=== PATIENT | male | born 1965 | race Caucasian/White ===

== ENCOUNTER → 2022-08-25 | Outpatient (REF) | payer OTHER ==
[2022-08-25 14:21] LABS: APPEARANCE, URINE MANUAL CLEAR (CLEAR); BILIRUBIN, URINE MANUAL NEGATIVE (NEGATIVE); BLOOD URINE MANUAL NEGATIVE (NEGATIVE); COLOR, URINE MANUAL YELLOW (YELLOW); GLUCOSE, URINE (UA) MANUAL NEGATIVE (NEGATIVE); KETONE, URINE MANUAL NEGATIVE (NEGATIVE); LEUKOCYTE ESTERASE, URINE MAN NEGATIVE (NEGATIVE); NITRITE, URINE MANUAL NEGATIVE (NEGATIVE); PROTEIN, URINE MANUAL NEGATIVE (NEGATIVE); SPECIFIC GRAVITY,URINE MANUAL 1.015 (1.002-1.035); UROBILINOGEN, URINE MANUAL NORMAL (NORMAL)
== END ==
LOC: M SMT 13:27
PROVIDERS: ATTEND Physician Assistant
DX: R39.198 Other difficulties with micturition (principal)

== ENCOUNTER → 2023-05-14 | Outpatient (CLI) | payer OTHER | LOC: M RAD 07:22 | PROVIDERS: ATTEND Otolaryngology | DX: J32.8 Other chronic sinusitis (principal) ==

== ENCOUNTER 2023-07-10 10:33 | Day surgery (SDC) | payer OTHER ==
[~2023-07-10] VITALS: Ht 188 cm; Wt 97.0 kg
[~2023-07-10 10:33] MED LIST: ALLE180T33 PO; AZEL1SPR3; BRIL1TAB PO; CARV3.12 PO; ECOT81TA5 PO; FLUTISP; NS 1,000 ML IV ONE; PANT40TA29 PO; PRED20TA PO; RAMI1CAP26 PO
[2023-07-10] MEDS ORDERED: propofoL 200 MG/20 ML VIAL As Ordered ONE ×2 (12:50→12:56)
[2023-07-10] MEDS ORDERED: LIDOCAINE 2% 100MG/5ML SDV (FOR ANES.) As Ordered ONE (12:50)
[2023-07-10] MEDS ORDERED: GLYCOPYRROLATE INJ 0.2 MG/ML 2 ML VIAL As Ordered ONE (12:56)
[2023-07-10 13:12] VITALS: TEMP 97.7
[2023-07-10 13:30] VITALS: BP 145/78; O2SAT 96
== END 2023-07-10 13:35 | disposition home or self-care (01) ==
LOC: M OPP 10:33
PROVIDERS: ATTEND Internal Medicine Gastroenterology
DX: Z12.11 Encounter for screening for malignant neoplasm of colon (principal); D12.6 Benign neoplasm of colon, unspecified; K63.5 Polyp of colon; K64.4 Residual hemorrhoidal skin tags; K64.8 Other hemorrhoids; F17.200 Nicotine dependence, unspecified, uncomplicated; I25.10 Atherosclerotic heart disease of native coronary artery without angina pectoris; Z86.73 Personal history of transient ischemic attack (TIA), and cerebral infarction without residual deficits; Z95.5 Presence of coronary angioplasty implant and graft; Z79.899 Other long term (current) drug therapy; Z88.6 Allergy status to analgesic agent; Z88.8 Allergy status to other drugs, medicaments and biological substances; Z91.030 Bee allergy status

== ENCOUNTER → 2023-10-29 | Outpatient (CLI) | payer OTHER ==
[~2023-10-29] MED LIST changes: +ISOVUE-370 76% 100ML VIAL ONE; -NS 1,000 ML IV ONE
== END ==
LOC: M PLAIMG 08:21
PROVIDERS: ATTEND Physician Assistant
DX: N28.1 Cyst of kidney, acquired (principal)

== ENCOUNTER → 2024-12-02 | Outpatient (CLI) | payer OTHER ==
[~2024-12-02] MED LIST changes: -ISOVUE-370 76% 100ML VIAL ONE; +RAMI10CA64 PO; -RAMI1CAP26 PO
== END ==
LOC: M RAD 12:52
PROVIDERS: ATTEND Nurse Practitioner Acute Care
DX: I25.10 Atherosclerotic heart disease of native coronary artery without angina pectoris (principal); I25.84 Coronary atherosclerosis due to calcified coronary lesion; I25.2 Old myocardial infarction; I65.23 Occlusion and stenosis of bilateral carotid arteries

== ENCOUNTER → 2025-04-09 | Outpatient (REF) | LOC: M LABCFH 13:32 | DX: R50.9 Fever, unspecified (principal) ==